=== PATIENT | female | born 1955 | race Caucasian/White ===

== ENCOUNTER 2017-06-12 18:44 | Emergency (ER) | payer OTHER, MEDICARE ==
[2017-06-12 18:52] VITALS: TEMP 98.2
[2017-06-12 19:00] VITALS: BP 172/100; PULSE 93; RESP 18
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
== END 2017-06-12 19:17 | disposition home or self-care (01) ==
LOC: EC 18:44
DX: M54.2 Cervicalgia (principal); G89.29 Other chronic pain; I10 Essential (primary) hypertension; F32.9 Major depressive disorder, single episode, unspecified; F17.200 Nicotine dependence, unspecified, uncomplicated; Z91.041 Radiographic dye allergy status; Z79.891 Long term (current) use of opiate analgesic; Z79.899 Other long term (current) drug therapy
CPT/HCPCS: 99283